=== PATIENT | male | born 1995 | race African-American/Black ===

== ENCOUNTER 2020-09-28 06:50 | Emergency (ER) | payer SELFPAY ==
[~2020-09-28] VITALS: Ht 180.3 cm; Wt 82.0 kg
[2020-09-28] MEDS ORDERED: T3 PO (08:24)
[2020-09-28] MEDS ORDERED: IBUP-2028 MT (08:24)
[2020-09-28 09:00] VITALS: BP 150/79
== END 2020-09-28 09:06 | disposition home or self-care (01) ==
LOC: ER 06:50
DX: S82.891A Other fracture of right lower leg, initial encounter for closed fracture (principal); V89.2XXA Person injured in unspecified motor-vehicle accident, traffic, initial encounter; Y93.89 Activity, other specified; Y92.89 Other specified places as the place of occurrence of the external cause; Y99.8 Other external cause status
CPT/HCPCS: 29505; 73562; 73610; 73630; 99284; Z7610

== ENCOUNTER 2020-11-07 12:56 | Emergency (ER) | payer SELFPAY ==
[~2020-11-07] VITALS: Ht 180.3 cm; Wt 82.0 kg
[~2020-11-07 12:56] MED LIST: IBUP-2028 MT; T3 PO
[2020-11-07] MEDS ORDERED: FLUORESCEIN SODIUM 1MG/STRIP BOTHEYE ONE (13:15)
[2020-11-07] MEDS ORDERED: TETRACAINE 0.5% OPHTH DROPS 4ML BOTHEYE ONE (13:15)
[2020-11-07] MEDS ORDERED: IBUPROFEN 800MG TABLET PO ONE (13:30)
[2020-11-07 13:35] VITALS: BP 158/77
[2020-11-07] MEDS ORDERED: NEOM28.38 TP (13:42)
== END 2020-11-07 14:25 | disposition home or self-care (01) ==
LOC: ER 13:18
DX: R20.8 Other disturbances of skin sensation (principal); Z79.899 Other long term (current) drug therapy
CPT/HCPCS: 99284